=== PATIENT | male | born 1970 | race Caucasian/White ===

== ENCOUNTER 2018-12-12 09:16 | Emergency (ER) | payer OTHER ==
[~2018-12-12] VITALS: Ht 185.4 cm; Wt 93.0 kg
[2018-12-12 10:09] LABS: BILIRUBIN NEGATIVE (NEGATIVE); BLOOD NEGATIVE (NEGATIVE); CLARITY CLEAR (CLEAR); COLOR YELLOW (YELLOW); GLUCOSE NEGATIVE (NEGATIVE); KETONE NEGATIVE (NEGATIVE); LEUKO ESTERASE NEGATIVE (NEGATIVE); NITRITE NEGATIVE (NEGATIVE); PH 5.5 (5.0-9.0); UROBILINOGEN 0.2 E.U./dl (0.2-1.0)
[2018-12-12 10:30] LABS: BACTERIA TRACE; MUCOUS 1+
[2018-12-15 00:06] LABS: GONOCOCCUS BY NAA Negative (Negative)
== END 2018-12-12 10:37 | disposition home or self-care (01) ==
LOC: ED 09:16
PROVIDERS: Nurse Practitioner Family
DX: Z20.2 Contact with and (suspected) exposure to infections with a predominantly sexual mode of transmission (principal); F17.200 Nicotine dependence, unspecified, uncomplicated

== ENCOUNTER 2024-11-20 20:48 | Emergency (ER) | payer SELFPAY ==
[~2024-11-20] VITALS: Ht 182.8 cm; Wt 81.6 kg
[2024-11-20] MEDS ORDERED: methylPREDNISolone sod succ 125 MG VIAL IV ONE (21:00)
[2024-11-20] MEDS ORDERED: Albuterol Sulfate 2.5 MG/3 ML VIAL NEB ONE (21:00)
[2024-11-20 21:23] LABS: BASO # 0.1 10*3/uL (0.0-0.1); BASO % 0.6 % (0.0-1.0); EOS % 0.4 % (1.0-4.0); HEMATOCRIT 49.3 % (42.0-52.0); MEAN CORPUSCULAR HGB 30.4 pg (27.0-31.0); MEAN CORPUSCULAR HGB CONC 33.1 g/dl (33.0-37.0); MEAN PLATELET VOLUME 10.6 fl (9.6-12.3); MONO # 0.7 10*3/uL (0.1-1.0); MONO % 7.8 % (3.0-9.0); NEUT # 5.6 10*3/uL (2.3-7.9); NEUT % 62.4 % (47.0-73.0); PLATELET COUNT AUTOMATED 326 10*3/uL (130-400); RED BLOOD COUNT 5.36 10*6/uL (4.50-5.90); RED CELL DISTRI WIDTH 13.8 % (0-14.5)
[2024-11-20 21:33] LABS: ACT PARTIAL THROMBO TIME 27.3 SECONDS (20.0-32.1)
[2024-11-20 21:46] LABS: ALKALINE PHOSPHATASE 130 U/L (46-116); BUN 9 mg/dl (9-23); CHLORIDE 106 mmol/L (98-107); POTASSIUM 3.6 mmol/L (3.4-5.1); SGPT/ALT 23 U/L (5-49); TOTAL PROTEIN 7.8 gm/dL (6.0-8.0)
[2024-11-20] MEDS ORDERED: AZITHROMYCIN 250 MG TAB PO ONE (22:30)
[2024-11-20] MEDS ORDERED: ALBUTEROL 8 GM INHALER INH ONE (22:50)
[2024-11-20] MEDS ORDERED: ZITHROMAX250 MG PO (22:51)
[2024-11-20] MEDS ORDERED: MEDROL DOSEPAK4 MG PO (22:51)
== END 2024-11-20 23:12 | disposition home or self-care (01) ==
LOC: ED 20:48
PROVIDERS: Internal Medicine
DX: J40 Bronchitis, not specified as acute or chronic (principal); Z20.822 Contact with and (suspected) exposure to COVID-19; F17.290 Nicotine dependence, other tobacco product, uncomplicated